=== PATIENT | male | born 1965 | race Caucasian/White ===

== ENCOUNTER 2022-06-26 22:58 | Emergency (ER) | payer SELFPAY ==
[2022-06-27 00:05] LABS: INFLUENZA A NEGATIVE (NEGATIVE); INFLUENZA B NEGATIVE (NEGATIVE); RESPIRATORY SYNCTIAL VIRUS NEGATIVE (NEGATIVE); SARS-CoV-2 Xpert Express NEGATIVE (NEGATIVE)
--- NOTE | 2022-06-27 00:23 | XRAY ---
CLINICAL HISTORY:Head injury; COMPARISON:None; TECHNIQUES:Axial non-contrast CT scan of the brain was performed from the skull base to the high parietal region. Coronal and sagittal images have also been acquired. CTDI: 53.92 mGy. DLP: 1016.25 mGy*cm; FINDINGS: The visualized brain parenchyma shows a normal appearance. Fair-white matter differentiation is maintained. No midline shifts or deformity. No intracerebral or extra axial hematoma. Normal size and configuration of the cerebral ventricles. Normal CT appearance of the posterior fossa structures namely the cerebellar hemispheres, brainstem, and cerebellar peduncles. The pituitary gland, the pineal gland, and the optic chiasm are unremarkable. The osseous structures in the skull base are unremarkable. No definite calvarium fractures. The scanned paranasal sinuses are clear. IMPRESSION: 1. No acute intracranial event was seen. 2. No calvarial fracture was noted. Electronically Signed by: Wandy Vines MD. (06/26/2022 23:13:49 [employer] TECHNICIAN)
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
[2022-06-27] MEDS ORDERED: Sodium Chloride 0.9% 1000 ML 1,000 ML IV STA (00:30)
[2022-06-27] MEDS ORDERED: Sodium Chloride 0.9% 1000 ML 1,000 ML ONE (00:31)
[2022-06-27 00:55] LABS: Hemoglobin 14.6 g/dL (12.5-18.0); Mean Cell Volume 99.1 fL (78-100); Mean Corpuscular Hemoglobin 33.6 pg (26-32); Mean Platelet Volume 10.1 fL (7.5-11.0); Platelet Count 229 x10^3/uL (150-450); Red Blood Count 4.34 x10^6/uL (4.1-5.6); Red Cell Distribution Width 12.6 % (11.5-14.0); White Blood Count 11.7 x10^3/uL (4.0-10.5)
[2022-06-27 01:10] LABS: ALBUMIN 3.4 g/dL (3.5-5.0); ALKALINE PHOSPHATASE 103 U/L (38-126); ANION GAP 9.6 MEQ/L (5-15); BLOOD UREA NITROGEN 20 mg/dL (9-20); CHLORIDE 93 mmol/L (98-107); Calcium 7.7 mg/dL (8.4-10.2); Carbon Dioxide 34 mmol/L (22-30); Creatinine 1 0.94 mg/dL (0.66-1.25); EST GLOMERULAR FILTRATION RATE > 60.0 ML/MIN; Glucose 146 mg/dL (74-106); Potassium 4.2 mmol/L (3.5-5.1); SGOT/AST 39 U/L (17-59); SGPT/ALT 43 U/L (0-50); SODIUM 133 mmol/L (137-145); Total Protein 6.6 g/dL (6.3-8.2)
[2022-06-27] MEDS ORDERED: Calcium Gluconate 10% 1000 MG IV ONE ×2 (01:33→01:46)
[2022-06-27] MEDS ORDERED: Zofran 4 MG/2 ML VIAL ONE (01:46)
[2022-06-27] MEDS ORDERED: Zofran 4 MG/2 ML VIAL IV ONE (01:49)
--- NOTE | 2022-06-27 02:05 | XRAY ---
CLINICAL HISTORY:Shortness of breath; COMPARISON:None; TECHNIQUES:X-ray of the chest, portable frontal view; FINDINGS: There is coarsening of the broncho vascular markings at the right para hilar region with hazy reticular densities in the right lower lobe. The remaining lung areas are clear. Normal configuration of the mediastinum. The just[place] are normal in size and position. The cardiac size is normal. The thoracic spine shows degenerative changes. The costophrenic and cardiophrenic angles are clear. IMPRESSION: coarsening of the broncho vascular markings at the right para hilar region with hazy reticular densities in the right lower lobe, which might be suggestive of congestion and/or consolidation. Please correlate clinically. Electronically Signed by: Wandy Vines MD. (06/27/2022 00:58:17 FOOD AND BEVERAGE COORDINATOR)
[2022-06-27 02:14] VITALS: O2SAT 98
[2022-06-27] MEDS ORDERED: Levofloxacin 500 MG Tablet ONE (02:31)
[2022-06-27] MEDS ORDERED: Levofloxacin 500 MG Tablet PO ONE (02:31)
[2022-06-27] MEDS ORDERED: TORAdol 30 mg Injection ONE (02:31)
[2022-06-27 02:36] LABS: Lymphocytes 16 % (24-44); Monocyte 4 % (0.0-12.0); Neutrophils 80 % (36.-66.); Total Cells Counted 100
[2022-06-27 02:37] LABS: Macrocytosis 1+; Platelet Estimate NORMAL (NORMAL)
[2022-06-27] MEDS ORDERED: TORAdol 30 mg Injection IV ONE (02:38)
[2022-06-27 02:39] LABS: Appearance Clear (Clear); Bacteria None Seen /HPF (None Seen); Bilirubin Small (Negative); Blood Negative (Negative); Epithelial Cells None Seen /HPF (None Seen); Glucose, Urine Negative (Negative); Ketones 15 (Negative); Leukocyte Esterase Trace (Negative); Nitrite Negative (Negative); Ph 5.5 (4.6-8.0); Protein,Urine Dip 30 (Negative); RBC 0-2 /HPF (0-5); Specific Gravity 1.025 (1.005-1.030); WBC 0-2 /HPF (0-5)
[2022-06-27 02:40] LABS: ADD URINE CULTURE? NO (NO)
[2022-06-27] MEDS ORDERED: TYLENOL EXTRA STRENGTH 500 MG PO STA (02:49)
[2022-06-27] MEDS ORDERED: TYLENOL EXTRA STRENGTH 500 MG ONE (02:50)
[2022-06-27 03:06] VITALS: BP 132/73; PULSE 96
== END 2022-06-27 03:02 | disposition home or self-care (01) ==
LOC: ED 22:58
DX: J15.9 Unspecified bacterial pneumonia (principal); E83.51 Hypocalcemia; E87.1 Hypo-osmolality and hyponatremia; D72.829 Elevated white blood cell count, unspecified; R50.9 Fever, unspecified; M79.10 Myalgia, unspecified site; R05.9 Cough, unspecified; R06.02 Shortness of breath; R11.10 Vomiting, unspecified; R19.7 Diarrhea, unspecified; R51.9 Headache, unspecified; Z28.310 Unvaccinated for COVID-19; Z72.0 Tobacco use
CPT/HCPCS: 0241U; 36000; 36415; 70450; 71045; 80053; 81001; 84484; 85025; 87040; 93041; 94760; 96374; 96375; 99284; J0610; J1885; J2405; A9270-GY